=== PATIENT | male | born 2000 | race Caucasian/White ===

== ENCOUNTER 2024-02-19 22:25 | Emergency (ER) | payer OTHER, SELFPAY ==
[2024-02-19 22:26] VITALS: BMI 17.2
[2024-02-19 22:30] VITALS: BP 139/84
[2024-02-19 22:50] VITALS: BP 127/79
[2024-02-19 23:00] VITALS: BP 132/76
[2024-02-19 23:40] LABS: % Basophils 0.2 % (0-2); % Eosinophils 0.4 % (0-6); % Immature Granulocytes 0.2 % (0-0.5); % Lymphocytes 22.2 % (20.5-51.1); % Monocytes 3.7 % (1.7-9.3); % Neutrophils 73.3 % (42.2-75.2); Absolute Lymphocytes 2.2 10^3/uL (1.2-3.4); Absolute Monocytes 0.4 10^3/uL (0.1-0.6); Absolute Neutrophils 7.2 10^3/uL (1.4-6.5); Hematocrit 43.5 % (39.0-52.0); Hemoglobin 15.7 g/dL (13.0-18.0); Mean Corp Hgb Conc. 36.1 g/dL (33.0-37.0); Mean Corpuscular Hgb 29.6 pg (27.0-31.0); Mean Corpuscular Volume 82.1 fL (80.0-94.0); Mean Platelet Volume 9.9 fL (7.4-10.4); Nucleated Red Blood Cells % 0 % (-); Platelet Count 303 10^3/uL (130-400); Red Cell Dist. Width 12.2 % (11.5-14.5); White Blood Cell Count 9.8 10^3/uL (4.8-10.8)
[2024-02-19 23:56] LABS: ALT (SGPT) 11 U/L (0-50); AST (SGOT) 19 U/L (17-59); Albumin 5.1 g/dl (3.5-5.0); Alkaline Phosphatase 44 U/L (38-126); Blood Urea Nitrogen 10 mg/dl (9-20); Calcium 10.3 mg/dl (8.4-10.2); Carbon Dioxide 28 mmol/L (22-30); Chloride 101 mmol/L (98-107); Estimated Creatinine Clearance > 125 ml/min; Glucose 107 mg/dl (70-99); Potassium 4.4 mmol/L (3.5-5.1); Sodium 140 mmol/L (135-145); Total Bilirubin 0.8 mg/dl (0.2-1.3); Total Protein 7.8 g/dl (6.3-8.2); eGFR > 60.00
[2024-02-20] VITALS: BP 117/71
[2024-02-20 00:01] LABS: Troponin I < 0.012 ng/ml
[2024-02-20 01:00] VITALS: BP 121/82
[2024-02-20] MEDS: CARAFATE SUSPENSION 1 GM PO (01:08)
[2024-02-20 02:00] VITALS: BP 121/75
--- NOTE | 2024-02-20 02:11 | ED.GENMED ---
History of Present Illness
General
Chief Complaint: Chest Pain
Source: patient
Exam Limitations: none
Time Seen by Provider: 02/19/24 22:47
Travel History
Have you had any contact with someone who has COVID-19?: No
Do you have any symptoms of coronavirus? Fever > 100 degrees, chills, cough, shortness of breath, sore throat, loss of taste or smell, muscle aches, or headache?: No
History of Present Illness
History of Present Illness:
23-year-old male presents with 24 hours chest pain. Patient states he was playing PlayStation smoking marijuana and developed pain in the center of his chest approximate 24 hours prior to arrival. The patient states the pain seems to wax and wane
but has been mostly constant. No shortness of breath. No leg swelling. No injury. No fevers.
Past History
Past History
ED Past Medical History: None
ED Past Surgical History: None
Social History
Drug: Marijuana
Phy Exam
Physical Exam
Physical Exam:
CONSTITUTIONAL Patient alert and oriented to person, place and time. Well-appearing. Vital signs reviewed.
HEAD atraumatic, normocephalic.
EYES eyelids normal to inspection, Pupils equally round and reactive to light, Extraocular muscles intact, Conjunctiva normal, Sclera normal.
NECK normal range of motion, Trachea midline, no jugular venous distention.
RESPIRATORY CHEST No respiratory distress noted, Chest expansion equal, Bilateral breath sounds clear.
CARDIOVASCULAR regular rate and rhythm, Heart sounds normal.
ABDOMEN abdomen nontender, Bowel sounds normal. No distention.
BACK normal inspection, no obvious deformities
UPPER EXTREMITY range of motion normal, Motor strength normal, no cyanosis, no edema.
LOWER EXTREMITY range of motion normal, Motor strength normal, no cyanosis, no edema.
NEURO Speech normal, No focal motor deficits, [place] coma scale 15, Memory normal, Cranial Nerves intact to screening exam.
SKIN skin warm, dry, and normal in color.
PSYCHIATRIC patient oriented to person place and time, Normal affect.
Scores
Heart Score for Chest Pain Patients
STEMI patient?: No
History: Slightly or Non-Suspicious
ECG: Normal
Age: </= 45 years
Risk Factors: No Risk Factors
Troponin: </= Normal Limit
Heart Score for Chest Pain Patients: 0
Heart Score Risk: 2.5% MACE over next 6 weeks
Course
Orders/Labs/Results
Orders:
Orders
02/19/24 22:29
Electrocardiogram (*1) Urgent
Reason for Study: Chest Pain
EKG- Treatment ONCE
02/19/24 22:34
Cardiac Monitoring- Treatment ONCE
IV Insert/Care/Rem.- Treatment PRN
CXR2 [CR Chest - 2 Views ] Urgent
Comment:
Reason For Exam: chest pain
Pulse Ox/spot Check [RESP] Urgent
Quantity: 1
Special Instructions: ON ROOM AIR
02/19/24 23:29
Complete Blood Count/With Diff Urgent
Comprehensive Metabolic Panel Urgent
Troponin I Urgent
02/20/24 00:35
Electrocardiogram (*1) Urgent
Reason for Study: Chest Pain
EKG- Treatment ONCE
02/20/24 01:05
Sucralfate Suspension [Carafate Suspension] 1 gm PO NOW STA
02/20/24 02:02
Electrocardiogram (*1) Urgent
Reason for Study: Chest Pain
EKG- Treatment ONCE
02/20/24 02:14
Pantoprazole [Protonix] 40 mg PO NOW STA
Abnormal Lab Results
02/19/24
23:29
Absolute Neuts (auto) 7.2 H 10^3/uL
(1.4-6.5)
Creatinine 0.6 L mg/dL
(0.7-1.3)
Glucose 107 H mg/dl
(70-99)
Calcium 10.3 H mg/dl
(8.4-10.2)
Albumin 5.1 H g/dl
(3.5-5.0)
02/19/24 23:29
02/19/24 23:29
Vital Signs
Initial and Last Documented VS:
Initial Vital Signs
Temp Pulse Resp BP Pulse Ox
97.9 F 73 18 139/84 100
02/19/24 22:30 02/19/24 22:30 02/19/24 22:30 02/19/24 22:30 02/19/24 22:30
Last Documented Vital Signs
Temp Pulse Resp BP Pulse Ox
97.9 F 64 16 121/75 100
02/19/24 22:30 02/20/24 02:45 02/20/24 02:45 02/20/24 02:00 02/20/24 02:45
MDM/Problems Addressed
MDM/Problems Addressed:
Chest pain
*Radiology
Radiology exam reviewed: all reviewed NAD by ED Provider
*Pulse Oximetry
Patient hypoxic: no
*EKG
Interpreted by ED Provider?: Yes
Interpretation: normal
Rate: normal
Rhythm: sinus
Damar: left axis deviation
Ischemia: no ischemia
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
Rate: normal
Interpretation: normal
Rhythm: sinus
*Critical Care Note
Total Time (30-74mins, 75-104mins- exclusive of procedures): Not Applicable
Data Reviewed
Source: patient
Further Testing Considered But Not Given:
Consider CTA but no risks for PE or dissection.
Patient Management
Escalation/DeEscalation of care consider admission/obs:
Patient appears well. chest pain and troponin and EKGs grossly normal. Patient appears well. Question GI source. Will start PPI daily and trial Carafate. Okay for discharge.
ED Attending Note
-
Portions of this chart may have been created with voice recognition software.� Occasional wrong word or��sound alike� substitutions may have occurred due to the inherent limitations of voice recognition software.
Discharge Plan
Departure
Patient Disposition: Home (Routine Discharge)
Date of Disposition: 02/20/24
Time of Disposition: 02:17
Patient with high blood pressure during this ER visit?: No
Discharge Problem:
Chest pain
Instructions: Chest Pain PCP Follow Up
Prescriptions:
New
sucralfate [Carafate] 100 mg/mL suspension
10 ml PO QID Qty: 300 0RF
pantoprazole [Protonix] 40 mg tablet,delayed release (DR/EC)
40 mg PO DAILY Qty: 30 0RF
Rx Instructions:
Please take 30 minutes prior to eating or drinking anything in the morning.
Referrals:
UNKNOWN - PT DOES,NOT KNOW [Family Provider] -
Activity Restrictions/Additional Instructions:
Please see your doctor in the next 3 to 5 days for follow-up and reevaluation. Return immediately for worsening pain, vomiting, shortness of breath or any other concerns. Please keep your diet bland.
Interventions
Interventions:
*Risk Screen - Suicide Last Done: 02/20/24 03:01
*General Assessment Last Done: 02/20/24 03:01
*Neglect/Abuse Screening Last Done: 02/20/24 03:01
ED- Fall Risk Assessment Last Done: 02/19/24 22:59
*ED COVID-19 Vaccine History Last Done: 02/20/24 03:01
*Nursing Disposition Last Done: 02/20/24 03:01
ED- Cardiac Assessment Last Done: 02/19/24 22:59
Discharge Date and Time
Discharge Date/Time: 02/20/24 03:02
Print Language: [facility]
[2024-02-20] MEDS: PROTONIX 40 MG PO (02:17)
== END 2024-02-20 03:02 | disposition home or self-care (01) ==
LOC: EMR 22:25
PROVIDERS: Student in an Organized Health Care Education/Training Program; EMERGENCY PHYSICIAN Emergency Medicine
DX: R07.89 Other chest pain (principal); F12.90 Cannabis use, unspecified, uncomplicated
CPT/HCPCS: 99285; 94760; 71046; 80053; 84484; 85025; 93005